=== PATIENT | male | born 1965 | race Caucasian/White ===

== ENCOUNTER 2019-04-02 08:13 | Outpatient (CLI) | payer MEDICARE, OTHER, SELFPAY ==
[2019-04-02 08:47] LABS: INR 2.54 (0.8-1.2)
== END 2019-04-02 08:14 | disposition home or self-care (01) ==
LOC: ONCMED 08:15
PROVIDERS: Family Provider Family Medicine; PCP Family Medicine; Visit Provider Internal Medicine Medical Oncology
DX: Z51.81 Encounter for therapeutic drug level monitoring (principal); Z79.01 Long term (current) use of anticoagulants
CPT/HCPCS: 85610

== ENCOUNTER 2019-05-04 10:47 | Outpatient (CLI) | payer OTHER, SELFPAY ==
[2019-05-04 11:24] LABS: INR 2.53 (0.8-1.2)
== END 2019-05-04 10:48 | disposition home or self-care (01) ==
LOC: ONCMED 10:50
PROVIDERS: Family Provider Family Medicine; PCP Family Medicine; Visit Provider Internal Medicine Medical Oncology
DX: Z51.81 Encounter for therapeutic drug level monitoring (principal); Z79.01 Long term (current) use of anticoagulants
CPT/HCPCS: 36415; 85610

== ENCOUNTER 2019-05-21 07:37 | Outpatient (CLI) | payer MEDICARE, OTHER, SELFPAY ==
[2019-05-21 08:33] LABS: Basophils % 0.8 %; Eosinophils # 0.1 10^3/uL (0.0-0.8); Eosinophils % 2.4 %; Hematocrit 42.4 % (42.0-52.0); Hemoglobin 13.9 g/dL (11.7-16.6); Lymphocytes # 0.8 10^3/uL (0.8-4.8); Lymphocytes % 20.7 %; Mean Corpuscular HGB Conc 32.8 g/dL (30.0-36.0); Mean Corpuscular Hemoglobin 28.1 pg (28.0-34.0); Mean Corpuscular Volume 85.7 fL (80-94); Mean Platelet Volume 10.5 fL (7.4-10.4); Monocytes # 0.3 10^3/uL (0.2-0.9); Monocytes % 6.6 %; Neutrophils # 2.6 10^3/uL (1.8-7.7); Neutrophils % 69.2 %; Nucleated Red Blood Cells % 0 %; Platelet Count 72 10^3/cmm (130-400); Red Blood Count 4.95 10^6/uL (4.1-5.3); Red Cell Distribution Width 14.1 % (12.1-15.1); White Blood Count 3.8 10^3/uL (4.0-10.0)
[2019-05-21 08:42] LABS: INR 2.52 (0.8-1.2)
[2019-05-21 08:50] LABS: Estmated Average Glucose 194; Hemoglobin A1C 8.4 % (4.0-6.0)
[2019-05-21 09:00] LABS: Alanine Aminotransferase 16 U/L (0-41); Albumin Level 4.2 g/dL (3.5-5.2); Alkaline Phosphatase 73 IU/L (40-130); Anion Gap 12.4 (5-19); Aspartate Amino Transferase 17 U/L (0-40); Blood Urea Nitrogen 14 mg/dL (6-20); Calcium 9.5 mg/dL (8.5-10.5); Carbon Dioxide 27 mmol/L (22-29); Chloride 104 mmol/L (98-107); Chol HDL Ratio 2.67 mg/dL (1.0-5.00); Cholesterol 128 mg/dL (0-200); Globulin 3.3 g/dL (1.3-4.6); Glomerular Filtration Rate 118.9 mL/min (90-130); Glucose 231 mg/dL (65-115); HDL Cholesterol 48 mg/dL (60-100); LDL Cholesterol Calculated 65 mg/dL (50-129); LDL HDL Ratio 1.35 RATIO (0.00-3.22); Osmolality Calculated 292 mOsm/kg (285-295); Potassium 4.4 mmol/L (3.5-5.1); Sodium 139 mmol/L (136-145); Thyroid Stimulating Hormone 2.87 uIU/mL (0.27-4.20); Total Bilirubin 1.1 mg/dL (0.15-1.2); Total Protein 7.5 g/dL (6.6-8.7); Triglycerides 77 mg/dL (0-150)
--- NOTE | 2019-05-22 08:57 | ONC FU_ITS ---
Dr. Gomes Patient Follow-Up Note Patient: Segundo Nelson Unit #: [id number]: 1965 Dicatated By: Narayan Gomes M.D.Date of Visit:May 21, 2019 Onc Med Follow-up/Prog Note Chief Complaint: Thrombophilia. History of Present Illness: This is a 53 year-old man with Klinefelter's syndrome and associated thrombophilia. He has been on chronic anticoagulation with warfarin. He has a very complicated medical history which includes portal vein thrombosis in childhood and associated varices. He had an episode of bleeding due to esophageal varices at age [age]. 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 He has been on chronic anticoagulation with warfarin since age 14. I had seen him in July 2009 following an episode of acute cholecystitis associated with choledocholithiasis and associated cystic duct obstruction. He had undergone temporary placement of a cholecystostomy tube prior to cholecystectomy, and at that time I had been asked to see him because of suspected coagulopathy. His coagulation studies, though, were normal, and he had no complications with the subsequent surgery. In September 2014 he had presented to the emergency room with swelling of the left leg. He was found to have extensive deep vein thrombosis by venous Doppler and CT pulmonary angiogram at that time showed a high burden of bilateral lower lobe pulmonary emboli. He had been off warfarin at the time, apparently because he had been having nausea/vomiting, and his INR was subtherapeutic at 1.24. He was treated with Lovenox and transitioned to warfarin. On 05/11/2015 he presented to the emergency room with upper GI bleeding. His INR was slightly subtherapeutic at 1.74. He underwent upper GI endoscopy 2 days later. By that time he did not appear to be actively bleeding. He was noted to have esophageal varices, but a specific source of blood loss was not identified. He was transferred to [facility] where subsequently underwent repeat endoscopy with esophageal banding. He did restart anticoagulation with warfarin. According to his mother it was suspected that he had liver cirrhosis, as his CT scans had shown associated splenomegaly with perisplenic and perigastric varices. He underwent hepatology evaluation by Dr. Calvin Bond at [facility] in November 2015. 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 There were associated collateral vessels, and there were changes of portal hypertension noted. 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 In any case, he continued chronic anticoagulation with warfarin.. His other medical illnesses include hypertension, type 2 diabetes, obesity, degenerative arthritis, and osteoporosis. He had recurrent staph infections in childhood, which apparently affected his growth plates. He then ended up having multiple surgeries on the right side of the jaw and on the left leg. He had surgery on the left leg again following a fracture in 2005, and he underwent cholecystectomy in 2009. He is a nonsmoker. INTERIM HISTORY: He is seen for a followup visit. He has been feeling pretty good generally. He is able to do light work, but he complains that he tires very easily. His ECOG score is 1. He has good appetite. He does not watch his diet very closely, and his blood sugars very considerably. He sometimes does get low readings. He has no fever or night sweats. He says his sinuses tend to be clogged up when he first gets up in the morning. He occasionally has a little bit of cough. He does not complain of shortness of breath or chest pain. He says he has a lot of loose stools. He has no other GI or complaints. He has significant pain in his shoulders and knees, particularly the left knee, and he is also having more pain in his left leg and foot. He also has needlelike pain in both feet and some numbness, consistent with neuropathy. He has headaches quite often. He has occasional orthostatic lightheadedness. Medications: Coumadin 2 (5 mg) Tablet Oral daily, Glimepiride 1 (2 mg) Tablet Oral b.i.d., Vitamin D (Cholecalciferol) Capsule Oral daily Allergies: Alcoholic beverages, Aspirin, Beer, Cymbalta, Latex, Levaquin, and Tamiflu. Review of Systems: Constitutional - His energy level is pretty good. He is able to do some light work, but he does get tried easily. Appetite is good and weight is stable. No fever, chills, hot flashes, or night sweats. ECOG score is 1, Eyes - He has some alteration in his vision. He has not seen a ophthamlologist, ENMT - He has some congestion in the mornings. No mouth sores. No sore throat or difficulty swallowing, Hematologic/Lymphatic - He brusies easily, Respiratory - No shortness of breath. He has a little bit of cough. No pleuritic pain or hemoptysis, Cardiovascular - No angina pain. No palpitations, Gastrointestinal - No nausea or vomiting. No heartburn or acid reflux. He has frequent episodes of loose stools. No constipation. No blood in the stool or black stools, Genitourinary (M) - No dysuria or hematuria. No urinary frequency. No urgency or incontinence, Musculoskeletal - He has arthritic pain in his knees and shoulders and he has some generalized aches, Integumentary - He has some swelling and discoloration in his lower extremites, worse on the left, Neurologic - He has headache quite often. He has occasional orthostatic lightheadedness. He has some intermitten numbness in his right little finger, Psychiatric - No anxiety or depression. No insomnia. Vital Signs: Performed on May 21, 2019 09:31 Height - 82.00 in Weight - 261.8 lbs (LOW) BSA - 2.62 sq.m BMI - 27.37 Temperature - 98.5 F Pulse - 58 /min (LOW) Respiration - 18 /min BP - 150/70 mm(hg) (HIGH) O2 Sat - 96 % Pain - 0 Physical Examination: Constitutional - He looks pretty good generally, Eyes - Sclerae nonicteric. Conjunctivae clear, ENMT - He has poor dentition, particularly the lower teeth on the left side. There are no other lesions noted in the oral cavity, Hematologic/Lymphatic - No cervical, clavicular, or axillary adenopathy, Respiratory - Lungs sound clear, Cardiovascular - Heart rhythm is regular. There is no murmur, gallop, him or rub noted, Abdomen - Soft. Liver is not enlarged. Spleen is not palpable. There is no abdominal mass or ascites noted and there is no inguinal adenopathy, Extremities - There are venous stasis changes bilaterally, worse on the left. There is some swelling of the left leg with calf circumference 44.5 cm on the left compared to 43 cm on the right. Posterior tibial pulses are palpable bilaterally, Integumentary - There are several large calluses on the plantar aspect of the left foot, Neurologic - There is diminished pinprick sensation in both feet, worse on the left. There are no other focal neurologic deficits noted. Lab/Imaging: Test performed on May 21, 2019 07:55 Cholesterol, Total 128 mg/dL Sodium 139 mmol/L TSH 2.87 uIU/mL Potassium 4.4 mmol/L Triglycerides 77 mg/dL Chloride 104 mmol/L LDL Cholesterol 65 mg/dL CO2 27 mmol/L Anion Gap 12.4 HDL Cholesterol 48 mg/dL BUN 14 mg/dL Cholesterol/HDL Ratio 2.67 mg/dL Creatinine 0.7 mg/dL LDL / HDL Ratio 1.35 RATIO Cr Clearance (Est) 209.70 mL/min eGFR 118.9 mL/min Glucose 231 mg/dL Calcium 9.5 mg/dL Protein, Total 7.5 g/dL Albumin 4.2 g/dL Globulin 3.3 g/dL Bilirubin, Total 1.1 mg/dL ALT (SGPT) 16 U/L AST (SGOT) 17 U/L Alkaline Phosphatase 73 IU/L Hemoglobin A1C % 8.4 % PT 28.20 SECONDS WBC 3.8 10 3/uL INR 2.52 RBC 4.95 10 6/uL HGB 13.9 g/dL HCT 42.4 % MCV 85.7 fL MCH 28.1 pg MCHC 32.8 g/dL RDW 14.1 % Platelet Count 72 10 3/cmm MPV 10.5 fL Neutrophils 2.6 10 3/uL Lymphocytes 0.8 10 3/uL Monocytes 0.3 10 3/uL Eosinophils 0.1 10 3/uL Basophils 0.0 10 3/uL Neutrophil % 69.2 % Lymphocyte % 20.7 % Monocyte % 6.6 % Eosinophil % 2.4 % Basophils % 0.8 % Impression: 1. Patient with Klinefelter's syndrome with associated thrombophilia. I believe he had a thrombophilia evaluation previously at the [facility], but records were not available. 2. He had an episode of lower extremity deep vein thrombosis and heavy burden pulmonary emboli in September 2014 while off warfarin. 3. He has additional history of portal vein thrombosis with associated portal hypertension and esophageal varices. He has had upper GI bleeding secondary to esophageal varices, and he has undergone multiple esophageal banding procedures. He has continued chronic anticoagulation with warfarin. His other medical illnesses include: 4. Hypertension. 5. Type 2 diabetes. 6. Obesity. 7. Osteoporosis. 8. Degenerative arthritis. During follow-up he has been stable clinically, though his diabetes has not been very well controlled. Management has been problematic in part due to dietary inconsistencies. He has had worsening problems with lower extremity venous stasis, which is worse on the left. He also has some diabetic neuropathy, and he has developed some calluses on his left foot. There has been no evidence, though, of any new thromboembolism. Plan: He remains on anticoagulation with warfarin. At this point I am hesitant to make any changes in his diabetes medication, as he sometimes does get low blood sugar readings. I will schedule an appointment with the department helper for the foot calluses and for the diabetic neuropathy, I also put in a request for diabetic shoes for him. I also will request physical therapy evaluation/treatment for the venous stasis, management of which has been further complicated due to his body habitus, as he is unable to put on his own socks. His pro times will be monitored monthly. He will be scheduled for a follow-up visit in 1 year. In the meantime, I will get him into see an rn acls as soon as that service becomes available here. I also will look into the availability of oral surgery for him. Signed By: Narayan Gomes M.D. <<Signature on File>>
== END 2019-05-21 07:38 | disposition home or self-care (01) ==
LOC: ONCMED 07:40
PROVIDERS: Family Provider Family Medicine; PCP Family Medicine; Visit Provider Internal Medicine Medical Oncology
DX: D68.59 Other primary thrombophilia (principal); R53.83 Other fatigue; E11.51 Type 2 diabetes mellitus with diabetic peripheral angiopathy without gangrene; E11.42 Type 2 diabetes mellitus with diabetic polyneuropathy; Q98.4 Klinefelter syndrome, unspecified; I10 Essential (primary) hypertension; E66.9 Obesity, unspecified; M19.90 Unspecified osteoarthritis, unspecified site; M81.0 Age-related osteoporosis without current pathological fracture; Z79.01 Long term (current) use of anticoagulants; Z79.84 Long term (current) use of oral hypoglycemic drugs; Z86.718 Personal history of other venous thrombosis and embolism; Z86.711 Personal history of pulmonary embolism
CPT/HCPCS: 36415; 80053; 80061; 83036; 84443; 85025; 85610; 99214

== ENCOUNTER 2019-06-06 12:05 | Outpatient (CLI) | payer MEDICARE, OTHER, SELFPAY ==
[2019-06-06 16:00] LABS: INR 2.37 (0.8-1.2)
== END 2019-06-06 12:06 | disposition home or self-care (01) ==
LOC: ONCMED 16:44
PROVIDERS: Family Provider Family Medicine; PCP Family Medicine; Visit Provider Internal Medicine Medical Oncology
DX: Z51.81 Encounter for therapeutic drug level monitoring (principal); Z79.01 Long term (current) use of anticoagulants; I87.2 Venous insufficiency (chronic) (peripheral)
CPT/HCPCS: 85610

== ENCOUNTER 2019-07-11 11:36 | Outpatient (CLI) | payer MEDICARE, OTHER, SELFPAY ==
[2019-07-11 12:20] LABS: INR 2.43 (0.8-1.2)
== END 2019-07-11 11:37 | disposition home or self-care (01) ==
LOC: ONCMED 11:37
PROVIDERS: Family Provider Family Medicine; PCP Family Medicine; Visit Provider Internal Medicine Medical Oncology
DX: E11.21 Type 2 diabetes mellitus with diabetic nephropathy (principal); I87.2 Venous insufficiency (chronic) (peripheral)
CPT/HCPCS: 36415; 85610

== ENCOUNTER 2019-08-14 11:53 | Outpatient (CLI) | payer MEDICARE, OTHER, SELFPAY ==
[2019-08-14 12:30] LABS: INR 2.07 (0.8-1.2)
== END 2019-08-14 11:54 | disposition home or self-care (01) ==
LOC: ONCMED 11:57
PROVIDERS: PCP Family Medicine; Visit Provider Internal Medicine Medical Oncology
DX: Q98.0 Klinefelter syndrome karyotype 47, XXY (principal); D68.59 Other primary thrombophilia; I81 Portal vein thrombosis; I85.11 Secondary esophageal varices with bleeding; I87.2 Venous insufficiency (chronic) (peripheral); M81.0 Age-related osteoporosis without current pathological fracture; E11.21 Type 2 diabetes mellitus with diabetic nephropathy; Z79.01 Long term (current) use of anticoagulants
CPT/HCPCS: 36415; 85610

== ENCOUNTER 2019-08-29 08:23 | Outpatient (RCR) | payer MEDICARE, OTHER, SELFPAY | END 2019-09-04 23:59 | disposition home or self-care (01) | LOC: SPT 08:23 | PROVIDERS: PCP Family Medicine; Referring Provider Internal Medicine Medical Oncology; Visit Provider Internal Medicine Medical Oncology | DX: I87.2 Venous insufficiency (chronic) (peripheral) (principal); E11.21 Type 2 diabetes mellitus with diabetic nephropathy; Z79.01 Long term (current) use of anticoagulants; I81 Portal vein thrombosis; I85.11 Secondary esophageal varices with bleeding; Q98.0 Klinefelter syndrome karyotype 47, XXY; D68.59 Other primary thrombophilia; M81.0 Age-related osteoporosis without current pathological fracture | CPT/HCPCS: 97140; 97161 ==

== ENCOUNTER 2019-09-12 13:35 | Outpatient (CLI) | payer MEDICARE, OTHER, SELFPAY ==
[2019-09-12 14:13] LABS: INR 2.57 (0.8-1.2)
== END 2019-09-12 13:36 | disposition home or self-care (01) ==
LOC: ONCMED 13:37
PROVIDERS: PCP Family Medicine; Visit Provider Internal Medicine Medical Oncology
DX: I81 Portal vein thrombosis (principal); I87.2 Venous insufficiency (chronic) (peripheral); I85.11 Secondary esophageal varices with bleeding; Q98.0 Klinefelter syndrome karyotype 47, XXY; D68.59 Other primary thrombophilia; E11.21 Type 2 diabetes mellitus with diabetic nephropathy; M81.0 Age-related osteoporosis without current pathological fracture; Z79.01 Long term (current) use of anticoagulants
CPT/HCPCS: 36415; 85610

== ENCOUNTER 2019-09-27 09:17 | Outpatient (CLI) | payer MEDICARE, OTHER, SELFPAY ==
--- NOTE | 2019-10-08 06:46 | ONC FU_ITS ---
Dr. Gomes Patient Follow-Up Note Patient: Segundo Nelson Unit #: [id number]: 1965 Dicatated By: Narayan Gomes M.D.Date of Visit:Sep 27, 2019 Onc Med Follow-up/Prog Note Chief Complaint: Thrombophilia. History of Present Illness: This is a 54 year-old man with Klinefelter's syndrome and associated thrombophilia. He has been on chronic anticoagulation with warfarin. He has chronic venous stasis of the lower extremities, and he also has hypertension, type 2 diabetes, obesity, and osteoporosis. He has a very complicated medical history which includes portal vein thrombosis in childhood and associated varices. He had an episode of bleeding due to esophageal varices at age [age]. 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 He has been on chronic anticoagulation with warfarin since age 14. I had seen him in July 2009 following an episode of acute cholecystitis associated with choledocholithiasis and associated cystic duct obstruction. He had undergone temporary placement of a cholecystostomy tube prior to cholecystectomy, and at that time I had been asked to see him because of suspected coagulopathy. His coagulation studies, though, were normal, and he had no complications with the subsequent surgery. In September 2014 he had presented to the emergency room with swelling of the left leg. He was found to have extensive deep vein thrombosis by venous Doppler and CT pulmonary angiogram at that time showed a high burden of bilateral lower lobe pulmonary emboli. He had been off warfarin at the time, apparently because he had been having nausea/vomiting, and his INR was subtherapeutic at 1.24. He was treated with Lovenox and transitioned to warfarin. On 05/11/2015 he presented to the emergency room with upper GI bleeding. His INR was slightly subtherapeutic at 1.74. He underwent upper GI endoscopy 2 days later. By that time he did not appear to be actively bleeding. He was noted to have esophageal varices, but a specific source of blood loss was not identified. He was transferred to [facility] where subsequently underwent repeat endoscopy with esophageal banding. He did restart anticoagulation with warfarin. According to his mother it was suspected that he had liver cirrhosis, as his CT scans had shown associated splenomegaly with perisplenic and perigastric varices. He underwent hepatology evaluation by Dr. Calvin Bond at [facility] in November 2015. 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 There were associated collateral vessels, and there were changes of portal hypertension noted. 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 In any case, he continued chronic anticoagulation with warfarin.. His other medical illnesses include hypertension, type 2 diabetes, obesity, and osteoporosis. He had recurrent staph infections in childhood, which apparently affected his growth plates. He then ended up having multiple surgeries on the right side of the jaw and on the left leg. He had surgery on the left leg again following a fracture in 2005, and he underwent cholecystectomy in 2009. He is a nonsmoker. INTERIM HISTORY: [facility]. By his recollection his diabetes was first discovered about 8-1/2 years ago. He has been on treatment with glimepiride under the direction of Dr. Castillo. In reviewing his records in [facility], his hemoglobin A1c level back in May 2015 was 5.5%. By May 2017 added increased to 6.9%. However, as of last year it had gone up to 8.1%. During this time he has had ongoing problems with the lower extremity venous stasis, and he gets swelling in his left leg and foot on a daily basis, though it usually recedes during the night. He has associated pain in both feet, left worse than right. He has some numbness/paresthesias. He has been seeing the salicylic acid blender for treatment of calluses on his feet. Medications: Coumadin 2 (5 mg) Tablet Oral daily, Doxycycline Hyclate 1 Tablet (of 100 mg) Tablet, enteric coated Oral daily, Glimepiride 1 (2 mg) Tablet Oral b.i.d. Allergies: Alcoholic beverages, Aspirin, Beer, Cymbalta, Latex, Levaquin, and Tamiflu. Vital Signs: Performed on Sep 27, 2019 09:37 Height - 82.00 in Weight - 266.6 lbs (HIGH) BSA - 2.65 sq.m BMI - 27.88 Temperature - 98.5 F Pulse - 93 /min Respiration - 24 /min BP - 136/82 mm(hg) O2 Sat - 95 % (LOW) Pain - 0 Physical Examination: Constitutional - He does not appear acutely ill, Extremities - There are chronic venous stasis changes bilaterally, worse on the left. There is some chronic swelling of the left leg. There is a callus on the ball of the left foot. There is 2+ dorsalis pedis pulse on the right and 1+ posterior tibial on the left, Integumentary - There are no skin ulcerations, Neurologic - There is decreased pinprick sensation in the left lower leg and foot. There are no other focal neurologic deficits. Lab/Imaging: Test performed on Sep 12, 2019 13:44 PT 28.50 SECONDS INR 2.57 Test performed on May 21, 2019 07:55 Cholesterol, Total 128 mg/dL Sodium 139 mmol/L TSH 2.87 uIU/mL Potassium 4.4 mmol/L Triglycerides 77 mg/dL Chloride 104 mmol/L LDL Cholesterol 65 mg/dL CO2 27 mmol/L Anion Gap 12.4 HDL Cholesterol 48 mg/dL BUN 14 mg/dL Cholesterol/HDL Ratio 2.67 mg/dL Creatinine 0.7 mg/dL LDL / HDL Ratio 1.35 RATIO Cr Clearance (Est) 209.70 mL/min eGFR 118.9 mL/min Glucose 231 mg/dL Calcium 9.5 mg/dL Protein, Total 7.5 g/dL Albumin 4.2 g/dL Globulin 3.3 g/dL Bilirubin, Total 1.1 mg/dL ALT (SGPT) 16 U/L AST (SGOT) 17 U/L Alkaline Phosphatase 73 IU/L Hemoglobin A1C % 8.4 % WBC 3.8 10 3/uL RBC 4.95 10 6/uL HGB 13.9 g/dL HCT 42.4 % MCV 85.7 fL MCH 28.1 pg MCHC 32.8 g/dL RDW 14.1 % Platelet Count 72 10 3/cmm MPV 10.5 fL Neutrophils 2.6 10 3/uL Lymphocytes 0.8 10 3/uL Monocytes 0.3 10 3/uL Eosinophils 0.1 10 3/uL Basophils 0.0 10 3/uL Neutrophil % 69.2 % Lymphocyte % 20.7 % Monocyte % 6.6 % Eosinophil % 2.4 % Basophils % 0.8 % Impression: 1. Patient with Klinefelter's syndrome with associated thrombophilia. I believe he had a thrombophilia evaluation previously at the [facility], but records were not available. 2. He had an episode of lower extremity deep vein thrombosis and heavy burden pulmonary emboli in September 2014 while off warfarin. 3. He has additional history of portal vein thrombosis with associated portal hypertension and esophageal varices. He has had upper GI bleeding secondary to esophageal varices, and he has undergone multiple esophageal banding procedures. He has continued chronic anticoagulation with warfarin. His other medical illnesses include: 4. Hypertension. 5. Type 2 diabetes. 6. Obesity. 7. Osteoporosis. 8. Degenerative arthritis. During follow-up he has been stable clinically, though his diabetes was very well controlled. He also has had worsening problems with lower extremity venous stasis. He does appear to have some associated diabetic neuropathy, and he has ongoing problems with calluses on his left foot. Plan: Due to the ongoing problems with his feet and the associated diabetic neuropathy, I will request diabetic shoes for him. I also now will arrange for referral to an hazmat cdl driver for his diabetes management. Signed By: Narayan Gomes M.D. <<Signature on File>>
== END 2019-09-27 09:18 | disposition home or self-care (01) ==
LOC: ONCMED 09:22
PROVIDERS: PCP Family Medicine; Visit Provider Internal Medicine Medical Oncology
DX: E11.40 Type 2 diabetes mellitus with diabetic neuropathy, unspecified (principal); I87.8 Other specified disorders of veins; M79.89 Other specified soft tissue disorders; L84 Corns and callosities; Q98.4 Klinefelter syndrome, unspecified; D68.69 Other thrombophilia; I10 Essential (primary) hypertension; E66.9 Obesity, unspecified; M81.0 Age-related osteoporosis without current pathological fracture; M19.90 Unspecified osteoarthritis, unspecified site; Z79.84 Long term (current) use of oral hypoglycemic drugs; Z86.711 Personal history of pulmonary embolism; Z79.01 Long term (current) use of anticoagulants; Z86.718 Personal history of other venous thrombosis and embolism
CPT/HCPCS: G0463

== ENCOUNTER → 2019-10-08 09:46 | Outpatient (BNVA) | payer MEDICARE, OTHER, SELFPAY | PROVIDERS: PCP Family Medicine; Visit Provider Internal Medicine | DX: E11.42 Type 2 diabetes mellitus with diabetic polyneuropathy (principal); M81.0 Age-related osteoporosis without current pathological fracture; I10 Essential (primary) hypertension | CPT/HCPCS: 99203 ==

== ENCOUNTER 2019-10-22 07:48 | Outpatient (CLI) | payer MEDICARE, OTHER, SELFPAY ==
[2019-10-22 08:49] LABS: INR 2.56 (0.8-1.2)
== END 2019-10-22 07:49 | disposition home or self-care (01) ==
LOC: ONCMED 07:51
PROVIDERS: PCP Family Medicine; Visit Provider Internal Medicine Medical Oncology
DX: I87.2 Venous insufficiency (chronic) (peripheral) (principal); I81 Portal vein thrombosis; Q98.0 Klinefelter syndrome karyotype 47, XXY; E11.21 Type 2 diabetes mellitus with diabetic nephropathy; Z79.01 Long term (current) use of anticoagulants; D68.59 Other primary thrombophilia; M81.0 Age-related osteoporosis without current pathological fracture
CPT/HCPCS: 36415; 85610

== ENCOUNTER 2019-12-10 08:35 | Outpatient (CLI) | payer MEDICARE, OTHER, SELFPAY ==
[2019-12-10 09:18] LABS: INR 2.29 (0.8-1.2)
== END 2019-12-10 08:36 | disposition home or self-care (01) ==
LOC: ONCMED 08:38
PROVIDERS: PCP Family Medicine; Visit Provider Internal Medicine Medical Oncology
DX: E11.42 Type 2 diabetes mellitus with diabetic polyneuropathy (principal); I10 Essential (primary) hypertension; M81.0 Age-related osteoporosis without current pathological fracture; Z79.01 Long term (current) use of anticoagulants
CPT/HCPCS: 36415; 83036; 85610; 99214

== ENCOUNTER 2019-12-10 09:36 | Outpatient (CLI) | payer MEDICARE, OTHER, SELFPAY ==
[2019-12-10 13:09] LABS: Estmated Average Glucose 217; Hemoglobin A1C 9.2 % (4.0-6.0)
== END 2019-12-10 09:37 | disposition home or self-care (01) ==
LOC: LAB 09:38
PROVIDERS: PCP Family Medicine; Visit Provider Internal Medicine
DX: E11.42 Type 2 diabetes mellitus with diabetic polyneuropathy (principal)
CPT/HCPCS: 83036

== ENCOUNTER 2019-12-14 13:51 | Outpatient (CLI) | payer MEDICARE, OTHER, SELFPAY ==
--- NOTE | 2019-12-14 15:45 | XR_ITS ---
WS: [id number] DEXA (DUAL ENERGY X-RAY ABSORPTIOMETRY) Bone mineral density was performed using a [employer] machine. HISTORY: hx of osteoporosis and fractures COMPARISON: 06/04/2015 Lumbar spine BMD (L1-L4): 0.921 g/cm2 T score: -2.5 Z score: -3.0 Total hip BMD: Left: 0.998 g/cm2. T score: -0.7 Z score: -0.8 Right: 0.658 g/cm2. T score: -3.1 Z score: -3.2 10 year probability of a major osteoporotic fracture is 14%. Compared to the prior study from 06/04/2015. Lumbar spine bone mineral density has decreased by 3.1%. Bilateral hips bone mineral density cannot be accurately compared. XR/XR DEXA axial skeleton* [id number] IMPRESSION: OSTEOPOROSIS. Significant decrease in bone mineral density in the lumbar spine since the prio r study.
== END 2019-12-14 13:52 | disposition home or self-care (01) ==
PROVIDERS: PCP Family Medicine; Visit Provider Internal Medicine
DX: M81.0 Age-related osteoporosis without current pathological fracture (principal)
CPT/HCPCS: 77080

== ENCOUNTER 2020-01-21 07:51 | Outpatient (CLI) | payer MEDICARE, OTHER, SELFPAY ==
[2020-01-21 08:20] LABS: INR 2.48 (0.8-1.2)
== END 2020-01-21 07:52 | disposition home or self-care (01) ==
LOC: ONCMED 07:56
PROVIDERS: PCP Family Medicine; Visit Provider Internal Medicine Medical Oncology
DX: E11.21 Type 2 diabetes mellitus with diabetic nephropathy (principal); I87.2 Venous insufficiency (chronic) (peripheral); I81 Portal vein thrombosis; I85.11 Secondary esophageal varices with bleeding; Q98.0 Klinefelter syndrome karyotype 47, XXY; D68.59 Other primary thrombophilia; M81.0 Age-related osteoporosis without current pathological fracture; Z79.01 Long term (current) use of anticoagulants
CPT/HCPCS: 36415; 85610

== ENCOUNTER 2020-02-12 09:59 | Outpatient (CLI) | payer MEDICARE, OTHER, SELFPAY ==
[2020-02-12 10:59] LABS: INR 2.04 (0.8-1.2)
== END 2020-02-12 10:00 | disposition home or self-care (01) ==
LOC: ONCMED 10:02
PROVIDERS: PCP Family Medicine; Visit Provider Internal Medicine Medical Oncology
DX: D68.59 Other primary thrombophilia (principal); Z51.81 Encounter for therapeutic drug level monitoring; Z79.01 Long term (current) use of anticoagulants
CPT/HCPCS: 36415; 85610

== ENCOUNTER → 2020-03-13 08:00 | Outpatient (BNVA) | payer MEDICARE, SELFPAY | PROVIDERS: PCP Family Medicine; Visit Provider Internal Medicine | DX: E11.42 Type 2 diabetes mellitus with diabetic polyneuropathy (principal); I10 Essential (primary) hypertension; M81.0 Age-related osteoporosis without current pathological fracture; Q98.4 Klinefelter syndrome, unspecified; Z79.01 Long term (current) use of anticoagulants | CPT/HCPCS: 99215 ==

== ENCOUNTER 2020-03-17 09:12 | Outpatient (CLI) | payer MEDICARE, OTHER, SELFPAY ==
[2020-03-17 10:00] LABS: INR 2.21 (0.8-1.2)
== END 2020-03-17 09:13 | disposition home or self-care (01) ==
PROVIDERS: PCP Family Medicine; Visit Provider Internal Medicine Medical Oncology
DX: D68.59 Other primary thrombophilia (principal)
CPT/HCPCS: 36415; 85610

== ENCOUNTER 2020-05-05 12:52 | Outpatient (CLI) | payer MEDICARE, OTHER, SELFPAY ==
[2020-05-05 13:46] LABS: INR 2.68 (0.8-1.2)
== END 2020-05-05 12:53 | disposition home or self-care (01) ==
LOC: ONCMED 12:58
PROVIDERS: PCP Family Medicine; Visit Provider Nurse Practitioner
DX: I87.2 Venous insufficiency (chronic) (peripheral) (principal); I81 Portal vein thrombosis; I85.11 Secondary esophageal varices with bleeding; Q98.0 Klinefelter syndrome karyotype 47, XXY; Z79.01 Long term (current) use of anticoagulants
CPT/HCPCS: 36415; 85610

== ENCOUNTER 2020-06-09 07:04 | Outpatient (CLI) | payer MEDICARE, OTHER, SELFPAY ==
[2020-06-09 08:22] LABS: INR 1.53 (0.8-1.2)
== END 2020-06-09 07:05 | disposition home or self-care (01) ==
LOC: ONCMED 07:04
PROVIDERS: PCP Family Medicine; Visit Provider Internal Medicine Medical Oncology
DX: D68.59 Other primary thrombophilia (principal); Z51.81 Encounter for therapeutic drug level monitoring; Z79.01 Long term (current) use of anticoagulants
CPT/HCPCS: 85610

== ENCOUNTER 2020-08-18 09:30 | Outpatient (CLI) | payer MEDICARE, OTHER, SELFPAY ==
[2020-08-18 10:15] LABS: INR 1.51 (0.8-1.2)
== END 2020-08-18 09:31 | disposition home or self-care (01) ==
LOC: ONCMED 09:32
PROVIDERS: PCP Family Medicine; Visit Provider Nurse Practitioner
DX: I87.2 Venous insufficiency (chronic) (peripheral) (principal); I81 Portal vein thrombosis; I85.11 Secondary esophageal varices with bleeding; Q98.0 Klinefelter syndrome karyotype 47, XXY; D68.59 Other primary thrombophilia; E11.21 Type 2 diabetes mellitus with diabetic nephropathy; M81.0 Age-related osteoporosis without current pathological fracture; Z79.01 Long term (current) use of anticoagulants
CPT/HCPCS: 36415; 85610

== ENCOUNTER 2020-10-31 10:09 | Outpatient (CLI) | payer MEDICARE, OTHER, SELFPAY ==
[2020-10-31 11:15] LABS: INR 2.65 (0.8-1.2)
== END 2020-10-31 10:10 | disposition home or self-care (01) ==
PROVIDERS: PCP Family Medicine; Visit Provider Internal Medicine Medical Oncology
DX: D68.59 Other primary thrombophilia (principal); Z79.899 Other long term (current) drug therapy
CPT/HCPCS: 36415; 85610

== ENCOUNTER 2021-05-19 09:40 | Outpatient (CLI) | payer MEDICARE, OTHER, SELFPAY ==
[2021-05-19 10:13] LABS: Basophils % 0.6 %; Eosinophils # 0.1 10^3/uL (0.0-0.8); Eosinophils % 3.4 %; Hematocrit 39.9 % (42.0-52.0); Lymphocytes # 0.7 10^3/uL (0.8-4.8); Lymphocytes % 19.7 %; Mean Corpuscular HGB Conc 32.6 g/dL (30.0-36.0); Mean Platelet Volume 10.4 fL (7.4-10.4); Monocytes # 0.3 10^3/uL (0.2-0.9); Monocytes % 7.9 %; Neutrophils # 2.42 10^3/uL (1.8-7.7); Neutrophils % 68.1 %; Nucleated Red Blood Cells % 0 %; Platelet Count 73 10^3/cmm (130-400); Red Blood Count 4.64 10^6/uL (4.1-5.3); Red Cell Distribution Width 14.6 % (12.1-15.1); White Blood Count 3.6 10^3/uL (4.0-10.0)
[2021-05-19 10:33] LABS: INR 1.71 (0.8-1.2)
--- NOTE | 2021-05-19 13:57 | ONC FU_ITS ---
Mylene Tom Progress Note Patient: Segundo Nelson Unit #: [id number]: 1965 Dicatated By: Mylene Tom N.P.Date of Visit:May 19, 2021 Onc MED Follow-up/Prog Note Chief Complaint: Thrombophilia. History of Present Illness: This is a 54 year-old man with Klinefelter's syndrome and associated thrombophilia. He has been on chronic anticoagulation with warfarin. He has chronic venous stasis of the lower extremities, and he also has hypertension, type 2 diabetes, obesity, and osteoporosis. He has a very complicated medical history which includes portal vein thrombosis in childhood and associated varices. He had an episode of bleeding due to esophageal varices at age [age]. 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 He has been on chronic anticoagulation with warfarin since age 14. I had seen him in July 2009 following an episode of acute cholecystitis associated with choledocholithiasis and associated cystic duct obstruction. He had undergone temporary placement of a cholecystostomy tube prior to cholecystectomy, and at that time I had been asked to see him because of suspected coagulopathy. His coagulation studies, though, were normal, and he had no complications with the subsequent surgery. In September 2014 he had presented to the emergency room with swelling of the left leg. He was found to have extensive deep vein thrombosis by venous Doppler and CT pulmonary angiogram at that time showed a high burden of bilateral lower lobe pulmonary emboli. He had been off warfarin at the time, apparently because he had been having nausea/vomiting, and his INR was subtherapeutic at 1.24. He was treated with Lovenox and transitioned to warfarin. On 05/11/2015 he presented to the emergency room with upper GI bleeding. His INR was slightly subtherapeutic at 1.74. He underwent upper GI endoscopy 2 days later. By that time he did not appear to be actively bleeding. He was noted to have esophageal varices, but a specific source of blood loss was not identified. He was transferred to [facility] where subsequently underwent repeat endoscopy with esophageal banding. He did restart anticoagulation with warfarin. According to his mother it was suspected that he had liver cirrhosis, as his CT scans had shown associated splenomegaly with perisplenic and perigastric varices. He underwent hepatology evaluation by Dr. Calvin Bond at [facility] in November 2015. 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 There were associated collateral vessels, and there were changes of portal hypertension noted. 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 In any case, he continued chronic anticoagulation with warfarin.. His other medical illnesses include hypertension, type 2 diabetes, obesity, and osteoporosis. He had recurrent staph infections in childhood, which apparently affected his growth plates. He then ended up having multiple surgeries on the right side of the jaw and on the left leg. He had surgery on the left leg again following a fracture in 2005, and he underwent cholecystectomy in 2009. He is a nonsmoker. INTERIM HISTORY: He is seen for a follwoup visit in regard to his diabetes and foot care. By his recollection his diabetes was first discovered about 8-1/2 years ago. He has been on treatment with glimepiride under the direction of Dr. Castillo. In reviewing his records in [facility], his hemoglobin A1c level back in May 2015 was 5.5%. By May 2017 added increased to 6.9%. However, as of 2018 it had gone up to 8.1%. The last Hba1c was in December, and it was 9.2%. He states he is doing well. He has venous stasis in bilateral lower extremities but states they look worse than they feel. He does have occasional in his feet. He wears diabetic shoes. He has mild swelling of the left lower extremity but he states that goes away when he elevates his feet. He is currently on warfarin 12.5 mg on Tuesdays and and 10 mg all other days. He does not always take it as ordered because he does not like to have to cut the pills in half. He states his appetite has been good. He denied breath, cough, chest pain. No fatigue. He has not been getting blood work drawn in quite some time due to the Covid pandemic. But he states he has been taking his medication as ordered other than warfarin that he occasionally misses a dose. Review Of Symptoms:See above. Past Medical History: Chronic lymphedema Cirrhosis Degenerative arthritis Diabetes type II DVT's Esophageal varices GI bleed Hypertension Klinefeiter syndrome Learning disability Psoriasis Past Surgical History: Multiple surgeries on the left leg Cholecystectomy in 2010 Left leg fracture in 2005 Left jaw joint replaced in 1979 Allergies: Alcoholic beverages, Aspirin, Beer, Cymbalta, Latex, Levaquin, and Tamiflu. Medications: Coumadin (5 mg) Tablet Oral Take as Directed Doxycycline Hyclate 1 Tablet (of 100 mg) Tablet, enteric coated Oral daily Glimepiride 1 (2 mg) Tablet Oral b.i.d. Family History: Mr. Nelson's mother is alive: osteoporosis. Mr. Nelson's father is alive. Mr. Nelson has 1 sister who is alive: osteoporosis, and heart disease, and diabetes. A sister has type I diabetes with renal failure. His mother, an aunt, and his sister also have osteoporosis. His sister reportedly also had blood clots at one time. His mother indicates that she had a negative thrombophilia evaluation. Social History: Mr. Nelson is single and he is a disabled. Mr. Nelson has never smoked. Physical Examination: Performed on May 19, 2021 13:26: Height - 82.00 in, Weight - 262.0 lbs (LOW), BSA - 2.63 sq.m, BMI - 27.40, Temperature - 98.3 F (LOW), Pulse - 89 /min, Respiration - 16 /min, BP - 148/82 mm(hg) (HIGH), O2 Sat - 98 %, Pain - 0, and Fatigue - 2. Performance Status: 1 - No physically strenuous activity, but ambulatory and able to carry out light or sedentary work (e.g. office work, light house work). (ECOG) Constitutional Alert, cooperative, oriented. Mood and affect appropriate. Appears close to chronological age. Well nourished. Well developed. Head Normocephalic; no scars. Respiratory Lungs are clear to auscultation without rhonchi or wheezing. Cardiovascular Regular rate and rhythm of heart without murmurs, gallops or rubs. Abdomen Non-tender, non-distended, no masses, ascites or hepatosplenomegaly. Good bowel sounds. No guarding or rebound tenderness. Extremities Signs of bilateral venous stasis. Mild edema lower extremities. Musculoskeletal No tenderness or swelling, normal range of motion without obvious weakness. Psychiatric Alert and oriented times three. Coherent speech. Verbalizes understanding of our discussions today. Laboratory: Test performed on May 19, 2021 10:01 PT 20.50 SECONDS WBC 3.6 10 3/uL INR 1.71 RBC 4.64 10 6/uL HGB 13.0 g/dL HCT 39.9 % MCV 86.0 fl MCH 28.0 pg MCHC 32.6 g/dL RDW 14.6 % Platelet Count 73 10 3/cmm MPV 10.4 fL Neutrophils 2.42 10 3/uL Lymphocytes 0.7 10 3/uL Monocytes 0.3 10 3/uL Eosinophils 0.1 10 3/uL Basophils 0.0 10 3/uL Neutrophil % 68.1 % Lymphocyte % 19.7 % Monocyte % 7.9 % Eosinophil % 3.4 % Basophils % 0.6 % NRBC % 0 % Impression: 1. Patient with Klinefelter's syndrome with associated thrombophilia. We believe he had a thrombophilia evaluation previously at the [facility], but records were not available. 2. He had an episode of lower extremity deep vein thrombosis and heavy burden pulmonary emboli in September 2014 while off warfarin. 3. He has additional history of portal vein thrombosis with associated portal hypertension and esophageal varices. He has had upper GI bleeding secondary to esophageal varices, and he has undergone multiple esophageal banding procedures. He has continued chronic anticoagulation with warfarin. His other medical illnesses include: 4. Hypertension. 5. Type 2 diabetes. 6. Obesity. 7. Osteoporosis. 8. Degenerative arthritis. Plan: 1. Patient has been clinically stable. At this point his INR is at 1.7 which is subtherapeutic. Patient has not been taking warfarin consistently. He forgets the 2.5 mg tabs but has had to cut those in half so we will send in a prescription for 2.5 mg tabs so he continue with his 12.5 mg on Tuesdays and and 10 mg all other days. He will return to the clinic in 1 month for PT/INR. He will follow-up with provider in 6 months with CBC, CMP, PT/INR. 2. Patient with type 2 diabetes and is followed by endocrinology. He continues to wear diabetic shoes for diabetic neuropathy. He has not received any blood work or hemoglobin A1c in several months. Last noted lab was in December 2019. He is to return in 1 month I will draw a hemoglobin A1c. He was encouraged to keep his follow-up appointments with endocrinology and also with his primary care. Signed By: Mylene Tom N.P. <<Signature on File>>
== END 2021-05-19 09:41 | disposition home or self-care (01) ==
PROVIDERS: PCP Family Medicine; Visit Provider Internal Medicine Medical Oncology
DX: Q98.4 Klinefelter syndrome, unspecified (principal); D68.59 Other primary thrombophilia; I10 Essential (primary) hypertension; E11.9 Type 2 diabetes mellitus without complications; E66.9 Obesity, unspecified; M81.0 Age-related osteoporosis without current pathological fracture; I89.0 Lymphedema, not elsewhere classified; Z86.718 Personal history of other venous thrombosis and embolism; Z79.01 Long term (current) use of anticoagulants
CPT/HCPCS: 36415; 85025; 85610; 99214

== ENCOUNTER 2021-07-27 06:00 | Oncology outpatient (recurring) (ONCR) | payer MEDICARE, OTHER, SELFPAY | END 2021-08-04 23:59 | disposition home or self-care (01) | LOC: ONCMED 09-02 06:18 | PROVIDERS: PCP Family Medicine; Visit Provider Nurse Practitioner Family | DX: Z51.81 Encounter for therapeutic drug level monitoring (principal); Z79.01 Long term (current) use of anticoagulants | CPT/HCPCS: 85610 ==

== ENCOUNTER → 2021-08-27 09:10 | Outpatient (BNVA) | payer MEDICARE, OTHER, SELFPAY | PROVIDERS: PCP Family Medicine; Visit Provider Internal Medicine Medical Oncology | DX: Z79.01 Long term (current) use of anticoagulants (principal) | CPT/HCPCS: 85610 ==

== ENCOUNTER → 2021-09-29 10:15 | Outpatient (BNVA) | payer MEDICARE, OTHER, SELFPAY | PROVIDERS: PCP Family Medicine; Visit Provider Family Medicine | DX: E78.2 Mixed hyperlipidemia (principal); M81.0 Age-related osteoporosis without current pathological fracture; I10 Essential (primary) hypertension; E11.42 Type 2 diabetes mellitus with diabetic polyneuropathy; Z79.01 Long term (current) use of anticoagulants | CPT/HCPCS: 80053; 80061; 83036; 85610 ==

== ENCOUNTER 2021-11-11 15:52 | Oncology outpatient (recurring) (ONCR) | payer MEDICARE, OTHER, SELFPAY | END 2021-12-04 23:59 | disposition home or self-care (01) | PROVIDERS: PCP Family Medicine; Visit Provider Internal Medicine Medical Oncology | DX: D68.59 Other primary thrombophilia (principal); Q98.4 Klinefelter syndrome, unspecified; K76.6 Portal hypertension; I85.11 Secondary esophageal varices with bleeding; Z79.01 Long term (current) use of anticoagulants; Z86.718 Personal history of other venous thrombosis and embolism | CPT/HCPCS: 99214 ==

== ENCOUNTER → 2022-03-26 12:14 | Outpatient (BNVA) | payer MEDICARE, OTHER, SELFPAY | PROVIDERS: PCP Family Medicine; Visit Provider Internal Medicine Medical Oncology | DX: Z79.01 Long term (current) use of anticoagulants (principal); E11.42 Type 2 diabetes mellitus with diabetic polyneuropathy | CPT/HCPCS: 83036; 85610 ==

== ENCOUNTER 2022-06-21 15:20 | Oncology outpatient (recurring) (ONCR) | payer MEDICARE, OTHER, SELFPAY | END 2022-07-04 23:59 | disposition home or self-care (01) | PROVIDERS: PCP Family Medicine; Visit Provider Internal Medicine Medical Oncology | DX: D68.59 Other primary thrombophilia (principal); Q98.4 Klinefelter syndrome, unspecified; Z79.01 Long term (current) use of anticoagulants; Z86.711 Personal history of pulmonary embolism; D73.1 Hypersplenism; Z86.718 Personal history of other venous thrombosis and embolism | CPT/HCPCS: 80053; 83036; 84443; 85025; 99214 ==

== ENCOUNTER → 2022-06-22 15:02 | Outpatient (BNVA) | payer MEDICARE, OTHER, SELFPAY | PROVIDERS: PCP Family Medicine; Visit Provider Family Medicine | DX: D68.59 Other primary thrombophilia (principal); E11.9 Type 2 diabetes mellitus without complications; R53.83 Other fatigue; Z79.01 Long term (current) use of anticoagulants; I10 Essential (primary) hypertension; E78.2 Mixed hyperlipidemia; Z79.1 Long term (current) use of non-steroidal anti-inflammatories (NSAID) | CPT/HCPCS: 85610 ==

== ENCOUNTER → 2022-07-26 11:47 | Outpatient (BNVA) | payer MEDICARE, OTHER, SELFPAY | PROVIDERS: PCP Family Medicine; Visit Provider Family Medicine | DX: Z79.01 Long term (current) use of anticoagulants (principal); I10 Essential (primary) hypertension; E78.2 Mixed hyperlipidemia | CPT/HCPCS: 85610 ==

== ENCOUNTER → 2022-09-03 10:06 | Outpatient (BNVA) | payer MEDICARE, OTHER, SELFPAY | PROVIDERS: PCP Family Medicine; Visit Provider Family Medicine | DX: D68.59 Other primary thrombophilia (principal); Z79.01 Long term (current) use of anticoagulants | CPT/HCPCS: 85610 ==

== ENCOUNTER → 2022-11-04 08:37 | Outpatient (BNVA) | payer MEDICARE, OTHER, SELFPAY | PROVIDERS: PCP Family Medicine; Visit Provider Internal Medicine | DX: E11.42 Type 2 diabetes mellitus with diabetic polyneuropathy (principal); Q98.4 Klinefelter syndrome, unspecified; Z71.3 Dietary counseling and surveillance; I10 Essential (primary) hypertension; Z79.4 Long term (current) use of insulin; Z79.84 Long term (current) use of oral hypoglycemic drugs | CPT/HCPCS: 99214 ==

== ENCOUNTER → 2022-11-15 10:05 | Outpatient (BNVA) | payer MEDICARE, OTHER, SELFPAY | PROVIDERS: PCP Family Medicine; Visit Provider Family Medicine | DX: E78.2 Mixed hyperlipidemia (principal); I10 Essential (primary) hypertension; E11.42 Type 2 diabetes mellitus with diabetic polyneuropathy | CPT/HCPCS: 80053; 80061; 82043; 83036 ==

== ENCOUNTER 2023-02-07 14:37 | Oncology outpatient (recurring) (ONCR) | payer MEDICARE, OTHER, SELFPAY ==
[2023-02-07 15:42] LABS: Eosinophils # 0.1 10^3/uL (0.0-0.8); Eosinophils % 2.5 %; Hematocrit 38.3 % (37-53); Lymphocytes # 0.6 10^3/uL (0.8-4.8); Lymphocytes % 17.5 %; Mean Corpuscular HGB Conc 32.4 g/dL (30-55); Mean Corpuscular Hemoglobin 27.6 pg (27-33); Mean Corpuscular Volume 85.3 fl (82-101); Mean Platelet Volume 9.6 fL (7.4-10.4); Monocytes # 0.2 10^3/uL (0.2-0.9); Monocytes % 6.3 %; Neutrophils # 2.28 10^3/uL (1.8-7.7); Neutrophils % 72.4 %; Nucleated Red Blood Cells % 0 %; Platelet Count 59 10^3/cmm (157-399); Red Blood Count 4.49 10^6/uL (3.85-5.65); Red Cell Distribution Width 14.4 % (12.1-15.1); White Blood Count 3.15 10^3/uL (3.29-11.43)
[2023-02-07 15:47] LABS: INR 2.78 (0.8-1.2)
[2023-02-07 15:55] LABS: Alanine Aminotransferase 26 U/L (0-41); Albumin Level 4.3 g/dL (3.5-5.2); Alkaline Phosphatase 72 U/L (40-130); Anion Gap 13.4 (5-19); Aspartate Amino Transferase 28 U/L (0-40); Blood Urea Nitrogen 12 mg/dL (6-20); Calcium 9.4 mg/dL (8.5-10.5); Carbon Dioxide 23 mmol/L (22-29); Chloride 101 mmol/L (98-107); Chol HDL Ratio 3.65 mg/dL (1.0-5.00); Cholesterol 157 mg/dL (0-200); Globulin 2.9 g/dL (1.3-4.6); Glomerular Filtration Rate 117.1 mL/min (90-130); Glucose 279 mg/dL (65-115); HDL Cholesterol 43 mg/dL (60-100); LDL Cholesterol Calculated 86 mg/dL (50-129); Osmolality Calculated 286 mOsm/kg (285-295); Potassium 4.4 mmol/L (3.5-5.1); Sodium 133 mmol/L (136-145); Total Bilirubin 0.8 mg/dL (0.15-1.2); Total Protein 7.2 g/dL (6.6-8.7); Triglycerides 138 mg/dL (0-150)
[2023-02-07 16:29] LABS: Estmated Average Glucose 272; Hemoglobin A1C 11.1 % (4.0-6.0)
== END 2023-03-06 23:59 | disposition home or self-care (01) ==
PROVIDERS: Internal Medicine; PCP Family Medicine; Visit Provider Internal Medicine Medical Oncology
DX: D68.59 Other primary thrombophilia (principal); Q98.4 Klinefelter syndrome, unspecified; K76.6 Portal hypertension; I85.11 Secondary esophageal varices with bleeding; Z79.01 Long term (current) use of anticoagulants; Z86.718 Personal history of other venous thrombosis and embolism; I10 Essential (primary) hypertension; E11.42 Type 2 diabetes mellitus with diabetic polyneuropathy; Z71.3 Dietary counseling and surveillance
CPT/HCPCS: 36415; 80053; 80061; 83036; 85025; 85610; 99214

== ENCOUNTER → 2023-04-27 13:36 | Outpatient (BNVA) | payer MEDICARE, OTHER, SELFPAY | PROVIDERS: PCP Family Medicine; Visit Provider Family Medicine | DX: Z79.01 Long term (current) use of anticoagulants (principal) | CPT/HCPCS: 85610 ==

== ENCOUNTER → 2023-05-06 11:38 | Outpatient (BNVA) | payer MEDICARE, OTHER, SELFPAY | PROVIDERS: PCP Family Medicine; Visit Provider Internal Medicine | DX: E11.42 Type 2 diabetes mellitus with diabetic polyneuropathy (principal); I10 Essential (primary) hypertension; Q98.4 Klinefelter syndrome, unspecified; Z71.3 Dietary counseling and surveillance; E78.2 Mixed hyperlipidemia; Z79.84 Long term (current) use of oral hypoglycemic drugs | CPT/HCPCS: 99214 ==

== ENCOUNTER → 2023-05-13 10:39 | Outpatient (BNVA) | payer MEDICARE, OTHER, SELFPAY | PROVIDERS: PCP Family Medicine; Visit Provider Family Medicine | DX: E11.42 Type 2 diabetes mellitus with diabetic polyneuropathy (principal); I10 Essential (primary) hypertension | CPT/HCPCS: 80053; 80061; 83036 ==

== ENCOUNTER 2023-08-11 14:10 | Oncology outpatient (recurring) (ONCR) | payer MEDICARE, OTHER, SELFPAY ==
[2023-08-11 16:07] LABS: Basophils % 0.7 %; Eosinophils # 0.1 10^3/uL (0.0-0.8); Eosinophils % 2.9 %; Hematocrit 36.5 % (37-53); Lymphocytes # 0.4 10^3/uL (0.8-4.8); Lymphocytes % 14.9 %; Mean Corpuscular HGB Conc 33.7 g/dL (30-55); Mean Corpuscular Hemoglobin 28.7 pg (27-33); Mean Corpuscular Volume 85.1 fl (82-101); Mean Platelet Volume 10.1 fL (7.4-10.4); Monocytes # 0.2 10^3/uL (0.2-0.9); Monocytes % 6.9 %; Neutrophils # 2.04 10^3/uL (1.8-7.7); Neutrophils % 74.2 %; Nucleated Red Blood Cells % 0 %; Platelet Count 59 10^3/cmm (157-399); Red Blood Count 4.29 10^6/uL (3.85-5.65); White Blood Count 2.75 10^3/uL (3.29-11.43)
[2023-08-11 16:26] LABS: Alanine Aminotransferase 23 U/L (0-41); Albumin Level 4.1 g/dL (3.5-5.2); Alkaline Phosphatase 76 U/L (40-130); Anion Gap 16.4 (5-19); Aspartate Amino Transferase 24 U/L (0-40); Blood Urea Nitrogen 17 mg/dL (6-20); Calcium 8.9 mg/dL (8.5-10.5); Carbon Dioxide 23 mmol/L (22-29); Chloride 102 mmol/L (98-107); Globulin 2.8 g/dL (1.3-4.6); Glomerular Filtration Rate 117.1 mL/min (90-130); Glucose 311 mg/dL (65-115); Osmolality Calculated 297 mOsm/kg (285-295); Potassium 4.4 mmol/L (3.5-5.1); Sodium 137 mmol/L (136-145); Total Bilirubin 0.8 mg/dL (0.15-1.2); Total Protein 6.9 g/dL (6.6-8.7)
[2023-08-11 18:17] LABS: INR 2.78 (0.8-1.2); Partial Thromboplastin Time 48.3 SECONDS (23.9-36.7)
== END 2023-09-04 23:59 | disposition home or self-care (01) ==
PROVIDERS: Internal Medicine; PCP Family Medicine; Visit Provider Internal Medicine Medical Oncology
DX: D68.59 Other primary thrombophilia (principal); M81.0 Age-related osteoporosis without current pathological fracture; Z79.01 Long term (current) use of anticoagulants
CPT/HCPCS: 36415; 80053; 85025; 85610; 85730; 99213

== ENCOUNTER → 2024-01-27 10:00 | Outpatient (BNVA) | payer MEDICARE, OTHER, SELFPAY | PROVIDERS: PCP Family Medicine; Visit Provider Internal Medicine | DX: E11.42 Type 2 diabetes mellitus with diabetic polyneuropathy (principal); I10 Essential (primary) hypertension; Q98.4 Klinefelter syndrome, unspecified; Z71.3 Dietary counseling and surveillance; E78.2 Mixed hyperlipidemia; Z79.84 Long term (current) use of oral hypoglycemic drugs | CPT/HCPCS: 99214 ==

== ENCOUNTER 2024-01-30 10:20 | Oncology outpatient (recurring) (ONCR) | payer MEDICARE, OTHER, SELFPAY ==
[2024-01-30 11:26] LABS: Basophils % 1.2 %; Eosinophils # 0.1 10^3/uL (0.0-0.8); Eosinophils % 2.7 %; Hematocrit 35.3 % (37-53); Lymphocytes # 0.4 10^3/uL (0.8-4.8); Lymphocytes % 14.4 %; Mean Corpuscular HGB Conc 33.4 g/dL (30-55); Mean Corpuscular Hemoglobin 28.1 pg (27-33); Mean Platelet Volume 10.1 fL (7.4-10.4); Monocytes # 0.2 10^3/uL (0.2-0.9); Monocytes % 6.6 %; Neutrophils # 1.92 10^3/uL (1.8-7.7); Neutrophils % 74.7 %; Nucleated Red Blood Cells % 0 %; Platelet Count 55 10^3/cmm (157-399); Red Cell Distribution Width 14.4 % (12.1-15.1); White Blood Count 2.57 10^3/uL (3.29-11.43)
[2024-01-30 11:59] LABS: Alanine Aminotransferase 18 U/L (0-41); Albumin Level 4.1 g/dL (3.5-5.2); Alkaline Phosphatase 67 U/L (40-130); Anion Gap 15.5 (5-19); Aspartate Amino Transferase 22 U/L (0-40); Blood Urea Nitrogen 12 mg/dL (6-20); Calcium 8.8 mg/dL (8.5-10.5); Carbon Dioxide 22 mmol/L (22-29); Chloride 100 mmol/L (98-107); Chol HDL Ratio 2.42 mg/dL (1.0-5.00); Cholesterol 143 mg/dL (0-200); Creatinine Clr Calc Pharmacy 153.5403; Globulin 2.6 g/dL (1.3-4.6); Glucose 408 mg/dL (65-115); HDL Cholesterol 59 mg/dL (60-100); LDL Cholesterol Calculated 63 mg/dL (50-129); LDL HDL Ratio 1.07 RATIO (0.00-3.22); Osmolality Calculated 293 mOsm/kg (285-295); Potassium 4.5 mmol/L (3.5-5.1); Sodium 133 mmol/L (136-145); Total Bilirubin 1.2 mg/dL (0.15-1.2); Total Protein 6.7 g/dL (6.6-8.7); Triglycerides 105 mg/dL (0-150)
[2024-01-30 12:06] LABS: Estmated Average Glucose 229; Hemoglobin A1C 9.6 % (4.0-6.0)
[2024-01-30 12:08] LABS: INR 2.11 (0.8-1.2)
== END 2024-02-04 23:59 | disposition home or self-care (01) ==
PROVIDERS: Internal Medicine; Internal Medicine Medical Oncology; PCP Family Medicine; Visit Provider Internal Medicine Medical Oncology
DX: D68.59 Other primary thrombophilia (principal); E11.42 Type 2 diabetes mellitus with diabetic polyneuropathy; I10 Essential (primary) hypertension; Z79.01 Long term (current) use of anticoagulants; Z87.891 Personal history of nicotine dependence; D69.59 Other secondary thrombocytopenia; D70.4 Cyclic neutropenia; R16.1 Splenomegaly, not elsewhere classified; Q98.4 Klinefelter syndrome, unspecified; Z86.711 Personal history of pulmonary embolism; Z86.718 Personal history of other venous thrombosis and embolism; Z79.84 Long term (current) use of oral hypoglycemic drugs; Z53.9 Procedure and treatment not carried out, unspecified reason
CPT/HCPCS: 36415; 80053; 80061; 83036; 85025; 85610; 99214

== ENCOUNTER 2024-07-31 13:00 | Oncology outpatient (recurring) (ONCR) | payer MEDICARE, OTHER, SELFPAY ==
[2024-07-31 13:39] LABS: Basophils % 0.7 %; Eosinophils # 0.1 10^3/uL (0.0-0.8); Eosinophils % 1.6 %; Hematocrit 35.7 % (37-53); Lymphocytes # 0.5 10^3/uL (0.8-4.8); Lymphocytes % 16.7 %; Mean Corpuscular HGB Conc 32.5 g/dL (30-55); Mean Platelet Volume 9.8 fL (7.4-10.4); Monocytes # 0.2 10^3/uL (0.2-0.9); Monocytes % 6.6 %; Neutrophils # 2.25 10^3/uL (1.8-7.7); Neutrophils % 73.7 %; Nucleated Red Blood Cells % 0 %; Platelet Count 48 10^3/cmm (157-399); Red Blood Count 4.15 10^6/uL (3.85-5.65); Red Cell Distribution Width 14.1 % (12.1-15.1); White Blood Count 3.05 10^3/uL (3.29-11.43)
[2024-07-31 13:53] LABS: INR 2.51 (0.8-1.2)
[2024-07-31 14:00] LABS: Alanine Aminotransferase 16 U/L (0-41); Albumin Level 3.9 g/dL (3.5-5.2); Alkaline Phosphatase 65 U/L (40-130); Anion Gap 16.5 (5-19); Aspartate Amino Transferase 19 U/L (0-40); Blood Urea Nitrogen 15 mg/dL (6-20); Calcium 8.9 mg/dL (8.5-10.5); Carbon Dioxide 24 mmol/L (22-29); Chloride 101 mmol/L (98-107); Globulin 2.7 g/dL (1.3-4.6); Glomerular Filtration Rate 116.7 mL/min (90-130); Glucose 347 mg/dL (65-115); Osmolality Calculated 299 mOsm/kg (285-295); Potassium 4.5 mmol/L (3.5-5.1); Sodium 137 mmol/L (136-145); Total Bilirubin 0.8 mg/dL (0.15-1.2); Total Protein 6.6 g/dL (6.6-8.7)
== END 2024-08-04 23:59 | disposition home or self-care (01) ==
PROVIDERS: Internal Medicine Medical Oncology; PCP Family Medicine; Visit Provider Internal Medicine Medical Oncology
DX: Z53.9 Procedure and treatment not carried out, unspecified reason; D68.59 Other primary thrombophilia; Z79.01 Long term (current) use of anticoagulants; D69.6 Thrombocytopenia, unspecified; K74.60 Unspecified cirrhosis of liver; D70.9 Neutropenia, unspecified; Z79.899 Other long term (current) drug therapy
CPT/HCPCS: 36415; 80053; 85025; 85610; 99214

== ENCOUNTER → 2024-08-09 10:45 | Outpatient (BNVA) | payer MEDICARE, OTHER, SELFPAY | PROVIDERS: PCP Family Medicine; Visit Provider Internal Medicine | DX: E11.42 Type 2 diabetes mellitus with diabetic polyneuropathy (principal); E78.2 Mixed hyperlipidemia; Z71.3 Dietary counseling and surveillance; Q98.4 Klinefelter syndrome, unspecified; I10 Essential (primary) hypertension | CPT/HCPCS: 36415; 80053; 80061; 82044; 83036; 99214 ==

== ENCOUNTER → 2024-12-04 12:22 | Outpatient (BNVA) | payer MEDICARE, OTHER, SELFPAY | PROVIDERS: PCP Family Medicine; Visit Provider Family Medicine | DX: M79.672 Pain in left foot (principal); I10 Essential (primary) hypertension | CPT/HCPCS: 80048; 84550; 85025; 86140 ==

== ENCOUNTER 2025-02-04 13:13 | Oncology outpatient (recurring) (ONCR) | payer MEDICARE, OTHER, SELFPAY ==
[2025-02-04 13:43] LABS: Hematocrit 35.0 % (37-53); Hemoglobin 11.90 g/dL (11.27-16.99); Mean Corpuscular HGB Conc 34.0 g/dL (30-55); Mean Corpuscular Hemoglobin 29.0 pg (27-33); Mean Corpuscular Volume 85.2 fl (82-101); Nucleated Red Blood Cells % 0 %; Platelet Count 46 10^3/cmm (157-399); Red Blood Count 4.11 10^6/uL (3.85-5.65); White Blood Count 2.77 10^3/uL (3.29-11.43)
[2025-02-04 13:56] LABS: INR 2.24 (0.8-1.2); Prothrombin Time 26.10 SECONDS (12.1-14.9)
[2025-02-04 14:03] LABS: Alanine Aminotransferase 16 U/L (0-41); Albumin Level 4.1 g/dL (3.5-5.2); Alkaline Phosphatase 64 U/L (40-130); Anion Gap 14.5 (5-19); Aspartate Amino Transferase 19 U/L (0-40); Blood Urea Nitrogen 14 mg/dL (6-20); Calcium 8.8 mg/dL (8.5-10.5); Carbon Dioxide 23 mmol/L (22-29); Chloride 102 mmol/L (98-107); Ferritin 141 ng/mL (30-400); Globulin 2.6 g/dL (1.3-4.6); Glucose 373 mg/dL (65-115); Iron 44 ug/dL (59-158); Osmolality Calculated 296 mOsm/kg (285-295); Potassium 4.5 mmol/L (3.5-5.1); Sodium 135 mmol/L (136-145); Total Iron Binding Capacity 228 mcg/dl; Total Protein 6.7 g/dL (6.6-8.7); Unsaturated Iron Binding 184 ug/dL (112-347)
[2025-02-04 14:18] LABS: Vitamin B12 1031 pg/mL (232-1245)
== END 2025-03-06 23:59 | disposition home or self-care (01) ==
PROVIDERS: Internal Medicine Medical Oncology; PCP Family Medicine; Visit Provider Internal Medicine Medical Oncology
DX: D68.59 Other primary thrombophilia (principal); E11.42 Type 2 diabetes mellitus with diabetic polyneuropathy; Z79.01 Long term (current) use of anticoagulants; Z87.891 Personal history of nicotine dependence
CPT/HCPCS: 36415; 80053; 82607; 82728; 82746; 83540; 83550; 85025; 85610; 99213